=== PATIENT | female | born 1965 | race Caucasian/White ===

== ENCOUNTER 2018-05-13 16:51 | Emergency (ER) | payer OTHER ==
[~2018-05-13] VITALS: Ht 167.6 cm; Wt 58.5 kg
== END 2018-05-13 17:35 | disposition home or self-care (01) ==
LOC: FSED 16:51
DX: R05 Cough (principal); J06.9 Acute upper respiratory infection, unspecified; Z85.038 Personal history of other malignant neoplasm of large intestine
CPT/HCPCS: 99283